=== PATIENT | male | born 1985 | race African-American/Black ===

== ENCOUNTER 2019-01-18 12:02 | Emergency (ER) | payer OTHER ==
[~2019-01-18] VITALS: Ht 188 cm; Wt 103.4 kg
[2019-01-18] MEDS ORDERED: NOHOMEMEDICATIONS (12:15)
[2019-01-18 13:09] LABS: INFLUENZA A ANTIGEN None Detected (None Detect); INFLUENZA B ANTIGEN None Detected (None Detect)
[2019-01-18] MEDS ORDERED: AMOXICILLIN 50500 MG PO (13:22)
[2019-01-18] MEDS ORDERED: TESSALON PERLE100 MG PO (13:24)
[2019-01-18 13:39] VITALS: BP 151/100
== END 2019-01-18 13:40 | disposition home or self-care (01) ==
LOC: M.ERS 12:02
PROVIDERS: Nurse Practitioner Family
DX: J06.9 Acute upper respiratory infection, unspecified (principal); F17.200 Nicotine dependence, unspecified, uncomplicated

== ENCOUNTER 2019-08-10 11:46 | Inpatient (IN) | payer OTHER ==
[~2019-08-10] VITALS: Ht 182.9 cm; Wt 100.2 kg
[~2019-08-10 11:46] MED LIST: AMOXICILLIN 50500 MG PO; NOHOMEMEDICATIONS; TESSALON PERLE100 MG PO
[2019-08-10 11:56] VITALS: BP 144/93
[2019-08-10 12:14] LABS: URINE BLOOD TRACE (Negative); URINE CLARITY CLEAR; URINE COLOR YELLOW; URINE GLUCOSE-RANDOM NEGATIVE (Negative); URINE KETONES NEGATIVE (Negative); URINE LEUKOCYTES-REFLEX NEGATIVE (Negative); URINE NITRITE-REFLEX NEGATIVE (Negative); URINE PROTEIN TRACE (Negative); URINE SPECIFIC GRAVITY >= 1.030 (1.005-1.030); URINE UROBILINOGEN 0.2 E.U./dl (0.2-1.0)
[2019-08-10 12:26] LABS: ICTOTEST (BILI CONFIRMATORY) Negative (Negative); URINE BILIRUBIN 1+ (Negative)
[2019-08-10 12:37] LABS: ABSOLUTE BASOPHILS 0.1 thou/uL (0.0-0.2); ABSOLUTE EOSINOPHILS 0.1 thou/uL (0.0-0.7); ABSOLUTE LYMPHOCYTES 1.7 thou/uL (0.8-5.3); ABSOLUTE MONOCYTES 0.3 thou/uL (0.0-1.2); ABSOLUTE NEUTROPHILS 3.9 thou/uL (1.6-8.1); BASOPHILS 0.8 %; EOSINOPHILS 1.6 %; HEMATOCRIT 48.2 % (42.0-52.0); LYMPHOCYTES 27.3 %; MCH 30.8 pg (26.0-34.0); MCHC 35.2 g/dL (28.0-37.0); MCV 87.6 fL (80.0-100.0); MONOCYTES 5.7 %; MPV 7.1 fl. (7.2-11.1); NUCLEATED RBCS 0 /100WBC; PLATELET COUNT* 243 thou/uL (150-400); POLYS 64.6 %; RDW-CV 13.8 % (10.5-14.5); WBC 6.1 thou/uL (4.0-11.0)
[2019-08-10 12:44] LABS: CALCIUM 9.1 mg/dL (8.5-10.1); CREATININE 1.1 mg/dL (0.6-1.3); POTASSIUM 5.2 mmol/L (3.5-5.1)
[2019-08-10 12:48] LABS: ALBUMIN 4.3 g/dL (3.4-5.0); TOTAL BILIRUBIN 0.9 mg/dL (<0.1-1.0); TOTAL PROTEIN 8.1 g/dL (6.4-8.2)
[2019-08-10 17:03] VITALS: BP 127/77
[2019-08-10 17:15] VITALS: BP 148/89
[2019-08-10 17:26] LABS: AMP/METHAMP Negative (Negative); BARBITURATES Negative (Negative); BENZODIAZEPINES Negative (Negative); COCAINE Negative (Negative); METHADONE Negative (Negative); OPIATES Negative (Negative); PCP Negative (Negative); THC POSITIVE (Negative)
[2019-08-10 20:05] VITALS: BP 118/71
[2019-08-11 03:53] LABS: ABSOLUTE EOSINOPHILS 0.1 thou/uL (0.0-0.7); ABSOLUTE LYMPHOCYTES 1.9 thou/uL (0.8-5.3); ABSOLUTE MONOCYTES 0.5 thou/uL (0.0-1.2); ABSOLUTE NEUTROPHILS 3.9 thou/uL (1.6-8.1); BASOPHILS 0.5 %; EOSINOPHILS 1.5 %; HEMATOCRIT 46.4 % (42.0-52.0); HEMOGLOBIN 15.8 gm/dL (14.0-18.0); LYMPHOCYTES 29.4 %; MCH 29.8 pg (26.0-34.0); MCV 87.6 fL (80.0-100.0); MONOCYTES 7.9 %; NUCLEATED RBCS 0 /100WBC; PLATELET COUNT* 225 thou/uL (150-400); POLYS 60.7 %; WBC 6.4 thou/uL (4.0-11.0)
[2019-08-11 04:42] LABS: ALBUMIN 3.6 g/dL (3.4-5.0); CALCIUM 8.6 mg/dL (8.5-10.1); CREATININE 1.3 mg/dL (0.6-1.3); DIRECT BILIRUBIN 0.2 mg/dL (<0.1-0.3); PHOSPHORUS* 3.6 mg/dL (2.5-4.9); TOTAL BILIRUBIN 0.8 mg/dL (<0.1-1.0); TOTAL PROTEIN 6.9 g/dL (6.4-8.2)
[2019-08-11 04:43] LABS: POTASSIUM 3.7 mmol/L (3.5-5.1)
[2019-08-11 07:40] VITALS: BP 115/48
[2019-08-11 15:40] VITALS: BP 121/77
[2019-08-11 20:54] VITALS: BP 136/83
[2019-08-12 02:06] LABS: HEPATITIS B SURFACE AG Negative (Negative)
[2019-08-12 04:44] LABS: CREATININE 1.2 mg/dL (0.6-1.3); POTASSIUM 3.7 mmol/L (3.5-5.1)
[2019-08-12 07:40] VITALS: BP 138/81
[2019-08-12] MEDS ORDERED: PEPCID20 MG PO (11:59)
[2019-08-12 12:23] VITALS: BP 138/81
== END 2019-08-12 13:25 | disposition home or self-care (01) | DRG 390 ==
LOC: M.ERS 11:46 → M.ORTHSURG 16:18 → M.TBA-ER 16:18 → M.ORTHSURG 17:03
PROVIDERS: Physician Assistant; Surgery; ADMIT Family Medicine
DX: K56.600 Partial intestinal obstruction, unspecified as to cause (principal); F12.90 Cannabis use, unspecified, uncomplicated; E87.5 Hyperkalemia; F17.210 Nicotine dependence, cigarettes, uncomplicated; K76.0 Fatty (change of) liver, not elsewhere classified; Z91.013 Allergy to seafood; Z83.3 Family history of diabetes mellitus; Z80.0 Family history of malignant neoplasm of digestive organs; Z79.899 Other long term (current) drug therapy

== ENCOUNTER 2020-03-21 07:16 | Emergency (ER) | payer OTHER ==
[~2020-03-21] VITALS: Ht 182.9 cm; Wt 99.8 kg
[~2020-03-21 07:16] MED LIST changes: +PEPCID20 MG PO
[2020-03-21 07:41] LABS: ABSOLUTE EOSINOPHILS 0.1 thou/uL (0.0-0.7); ABSOLUTE LYMPHOCYTES 2.3 thou/uL (0.8-5.3); ABSOLUTE MONOCYTES 0.5 thou/uL (0.0-1.2); ABSOLUTE NEUTROPHILS 4.5 thou/uL (1.6-8.1); BASOPHILS 0.5 %; EOSINOPHILS 0.8 %; HEMATOCRIT 46.6 % (42.0-52.0); HEMOGLOBIN 16.5 gm/dL (14.0-18.0); LYMPHOCYTES 31.2 %; MCH 30.5 pg (26.0-34.0); MCHC 35.4 g/dL (28.0-37.0); MONOCYTES 6.6 %; MPV 6.6 fl. (7.2-11.1); NUCLEATED RBCS 0 /100WBC; PLATELET COUNT* 230 thou/uL (150-400); POLYS 60.9 %; RBC 5.42 mil/uL (4.50-6.00); RDW-CV 14.1 % (10.5-14.5); WBC 7.3 thou/uL (4.0-11.0)
[2020-03-21 07:51] LABS: CALCIUM 8.9 mg/dL (8.5-10.1); POTASSIUM 3.7 mmol/L (3.5-5.1)
[2020-03-21 08:08] LABS: ALBUMIN 4.2 g/dL (3.4-5.0); TOTAL BILIRUBIN 0.5 mg/dL (<0.1-1.0)
--- NOTE | 2020-03-21 08:53 | EKG ---
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
[2020-03-21] MEDS ORDERED: ZOFRAN ODT4 MG DISSOLVE (10:15)
[2020-03-21] MEDS ORDERED: BENTYL 20 MG TA20 M1 PO (10:15)
[2020-03-21 10:25] VITALS: BP 137/80
== END 2020-03-21 10:26 | disposition home or self-care (01) ==
LOC: M.ERS 07:16
PROVIDERS: Emergency Medicine Emergency Medical Services
DX: R07.89 Other chest pain (principal); R10.9 Unspecified abdominal pain; Z91.013 Allergy to seafood

== ENCOUNTER 2021-10-30 21:16 | Emergency (ER) | payer OTHER ==
[~2021-10-30] VITALS: Ht 182.9 cm; Wt 95.3 kg
[~2021-10-30 21:16] MED LIST changes: +BENTYL 20 MG TA20 M1 PO; +ZOFRAN ODT4 MG DISSOLVE
[2021-10-30 22:29] LABS: INFLUENZA A ANTIGEN Negative (Negative); INFLUENZA B ANTIGEN Negative (Negative)
[2021-10-31 01:39] LABS: ABSOLUTE LYMPHOCYTES 0.8 thou/uL (0.8-5.3); ABSOLUTE MONOCYTES 0.4 thou/uL (0.0-1.2); ABSOLUTE NEUTROPHILS 5.3 thou/uL (1.6-8.1); BASOPHILS 0.3 %; EOSINOPHILS 0.6 %; HEMATOCRIT 48.9 % (42.0-52.0); HEMOGLOBIN 17.1 gm/dL (14.0-18.0); LYMPHOCYTES 11.6 %; MCH 30.1 pg (26.0-34.0); MCV 86.2 fL (80.0-100.0); MONOCYTES 6.5 %; MPV 6.6 fl. (7.2-11.1); NUCLEATED RBCS 0 /100WBC; PLATELET COUNT* 192 thou/uL (150-400); RBC 5.68 mil/uL (4.50-6.00); RDW-CV 13.9 % (10.5-14.5); WBC 6.6 thou/uL (4.0-11.0)
[2021-10-31 01:50] LABS: CALCIUM 9.1 mg/dL (8.5-10.1); CREATININE 1.1 mg/dL (0.6-1.3); POTASSIUM 3.6 mmol/L (3.5-5.1)
[2021-10-31 01:55] LABS: ALBUMIN 4.2 g/dL (3.4-5.0); TOTAL BILIRUBIN 1.4 mg/dL (<0.1-1.0); TOTAL PROTEIN 8.1 g/dL (6.4-8.2)
[2021-10-31 04:37] LABS: URINE BILIRUBIN NEGATIVE (Negative); URINE BLOOD TRACE (Negative); URINE CLARITY CLEAR; URINE COLOR YELLOW; URINE GLUCOSE-RANDOM NEGATIVE (Negative); URINE KETONES TRACE (Negative); URINE LEUKOCYTES-REFLEX NEGATIVE (Negative); URINE NITRITE-REFLEX NEGATIVE (Negative); URINE PROTEIN NEGATIVE (Negative); URINE SPECIFIC GRAVITY >= 1.030 (1.005-1.030); URINE UROBILINOGEN 0.2 E.U./dl (0.2-1.0)
[2021-10-31] MEDS ORDERED: ZOFRAN ODT4 MG PO (04:44)
[2021-10-31] MEDS ORDERED: HYDROCODON-ACE1 EAC7 PO (04:44)
[2021-10-31 05:01] VITALS: BP 122/73
[2021-10-31 05:46] LABS: AMP/METHAMP Negative (Negative); BARBITURATES Negative (Negative); BENZODIAZEPINES Negative (Negative); COCAINE Negative (Negative); METHADONE Negative (Negative); OPIATES POSITIVE (Negative); PCP Negative (Negative); THC POSITIVE (Negative)
== END 2021-10-31 05:02 | disposition home or self-care (01) ==
LOC: M.ERS 21:16
PROVIDERS: Personal Emergency Response Attendant; Physician Assistant
DX: K52.9 Noninfective gastroenteritis and colitis, unspecified (principal); Z20.822 Contact with and (suspected) exposure to COVID-19; K57.90 Diverticulosis of intestine, part unspecified, without perforation or abscess without bleeding; Z91.013 Allergy to seafood